=== PATIENT | male | born 1990 | race Caucasian/White ===

== ENCOUNTER 2020-05-02 17:40 | Emergency (ER) | payer BC, SELFPAY ==
[2020-05-02] MEDS ORDERED: FLUORESCEIN SODIUM 1 MG/WRAP ONE (18:32)
[2020-05-02] MEDS ORDERED: TETRACAINE HCL 0.5% 4ML OPTH ONE ×2 (18:36→19:30)
[2020-05-02] MEDS ORDERED: KETOROLAC 30 MG/ML INJ ONE (19:17)
--- NOTE | 2020-05-02 19:31 | EDPHYS ---
Physician Documentation [facility] Name: Daryn Mesa Age: 29 yrs Sex: Male : 1990 Arrival Date: 05/02/2020 Time: 17:42 Bed 25 Private MD: ED Physician Santos Alcantara HPI: 05/02 18:29 This 29 yrs old Male presents to ER via Ambulatory with complaints of Eye pm1 Injury. 18:29 The patient is experiencing pain, redness, tearing, The patient sustained a scratch, to pm1 the left eye, caused by branch. Onset: The symptoms/episode began/occurred just prior to arrival, today. Duration: the symptoms are continuous. Aggravated by nothing. Alleviated by nothing. Associated signs and symptoms: Pertinent positives: None. Patient does not utilize any form of vision correction. Severity of symptoms: in the emergency department the symptoms are worse. The patient has not experienced similar symptoms in the past. 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 He then tried to wash his eye with a hose because he felt like there was something in his eye. The water was hot and it made his eye pain worse. Historical: - Allergies: 17:46 No Known Allergies; ll1 - PSHx: 17:46 None; ll1 - Immunization history:: Last tetanus immunization: unknown. - Social history:: Smoking status: Patient reports the use of cigarette tobacco products, smokes one-half pack cigarettes per day, Patient uses alcohol, only on a social basis. Patient/guardian denies using IV drugs. ROS: 18:29 Constitutional: Negative for fever, chills, and weight loss. pm1 18:29 ENT: Negative for injury, pain, and discharge, Neck: Negative for injury, pain, and swelling, Cardiovascular: Negative for chest pain, palpitations, and edema, Respiratory: Negative for shortness of breath, cough, wheezing, and pleuritic chest pain, Abdomen/GI: Negative for abdominal pain, nausea, vomiting, diarrhea, and constipation, MS/Extremity: Negative for injury and deformity, Skin: Negative for injury, rash, and discoloration, Neuro: Negative for headache, weakness, numbness, tingling, and seizure. 18:29 Eyes: Positive for pain, redness, tearing, of the left eye. Exam: 19:30 Constitutional: This is a well developed, well nourished patient who is awake, alert, pm1 and in no acute distress. Head/Face: Normocephalic, atraumatic. 19:30 Skin: Warm, dry with normal turgor. Normal color with no rashes, no lesions, and no evidence of cellulitis. MS/ Extremity: Pulses equal, no cyanosis. Neurovascular intact. Full, normal range of motion. 19:30 Eyes: Periorbital structures: appear normal, Pupils: no acute changes, normal size, normal reaction to light, Extraocular movements: intact throughout, Conjunctiva: injected, mild to 9 o'clock of left eye. No chemosis present, Corneas: abrasion, that is small, approximately 3 mm(s), on the left, at 9 o'clock, foreign body, is not appreciated, a fluorescein strip employed to appreciate the findings, Sclera: no appreciated abnormality, Anterior chamber: normal, no hyphema, in left eye, Lids and lashes: appear normal, bilaterally. 19:30 Cardiovascular: Exam negative for acute changes, Rate: normal, Rhythm: regular, Pulses: no pulse deficits are appreciated. 19:30 Respiratory: Exam negative for acute changes, respiratory distress, shortness of breath. 19:30 Neuro: Exam negative for acute changes, Orientation: is normal, Mentation: is normal, Motor: is normal, moves all fours. Vital Signs: 17:44 BP 141 / 75; Pulse 74; Resp 17; Temp 97.8; Pulse Ox 99% ; Pain 8/10; ll1 Visual Acuity: 18:31 Right Eye Visual acuity 20/25, ; Both Eyes Visual acuity 20/30; Without Lenses; Left vc eye watering too much, states vision comes and goes. MDM: 18:11 Patient medically screened. [facility] 19:30 Data reviewed: vital signs. Data interpreted: Pulse oximetry: on room air is 99 %. pm1 Interpretation: normal. Counseling: I had a detailed discussion with the patient and/or guardian regarding: the historical points, exam findings, and any diagnostic results supporting the discharge/admit diagnosis, the need for outpatient follow up, for definitive care, an opthalmologist, to return to the emergency department if symptoms worsen or persist or if there are any questions or concerns that arise at home. 05/03 02:03 ED course: TELESALES ADVISOR Aware reviewed. pm1 05/02 18:34 Order name: Visual Acuity; Complete Time: 18:35 pm1 05/02 18:34 Order name: Eye Tray; Complete Time: 18:35 pm1 05/02 18:34 Order name: Fluoresene Opth strip; Complete Time: 18:35 pm1 Administered Medications: 05/02 19:13 Not Given (Patient drove self): Tylenol #3 (300 mg-30 mg) 2 tabs PO once; RASS on vc ADMIN: Combtv4, Very Agttd3, Agttd2, Rstlss1, AlertClm0, Drwsy-1, Lt Sdtn-2, Mod Sdtn-3, Dp Sdtn-4, UnArsble-5 19:13 Drug: TORadol 60 mg Route: IM; Site: right vastus lateralis; vc 23:03 Follow up: Response: No adverse reaction vc 19:40 Drug: Tetracaine Drops 0.5 % 1 drops Route: Ophthalmic; Site: left eye; vc Disposition: 05/03 05:38 Co-signature as Attending Physician, Santos Alcantara MD I agree with the assessment and [facility] plan of care. Disposition: 05/02/20 19:31 Discharged to Home. Impression: Injury of conjunctiva and corneal abrasion without foreign body, left eye. - Condition is Stable. - Discharge Instructions: Corneal Abrasion. - Prescriptions for Vigamox 0.5 % Ophthalmic Drops - instill 1 drop by OPHTHALMIC route every 8 hours for 7 days; 5 milliliter. Tylenol- Codeine #3 300-30 mg Oral Tablet - take 2 tablets by ORAL route every 6 hours As needed; 20 tablet. - Medication Reconciliation Form, Thank You Letter, Antibiotic Education, Prescription Opioid Use form. - Follow up: Emergency Department; When: As needed; Reason: Worsening of condition. Follow up: Private Physician; When: 2 - 3 days; Reason: Recheck today's complaints, Continuance of care, Re-evaluation by your physician. - Problem is new. - Symptoms have improved. Signatures: Santos Alcantara MD MD cha Marinas, Patrick, APPLIANCE FIXER APPLIANCE FIXER pm1 Avis Carballo RN RN vc Georgia Be RN RN ll1 Corrections: (The following items were deleted from the chart) 05/02 19:48 19:31 05/02/2020 19:31 Discharged to Home. Impression: Injury of conjunctiva and vc corneal abrasion without foreign body, left eye. Condition is Stable. Forms are Medication Reconciliation Form, Thank You Letter, Antibiotic Education, Prescription Opioid Use. Follow up: Emergency Department; When: As needed; Reason: Worsening of condition. Follow up: Private Physician; When: 2 - 3 days; Reason: Recheck today's complaints, Continuance of care, Re-evaluation by your physician. Problem is new. Symptoms have improved. pm1
--- NOTE | 2020-05-02 19:31 | ER ---
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 Tried to rinse ll1 out with hose. Super hot water flushed into eye suddenly. Coronavirus screen: Proceed with normal triage. Patient denies a cough. Patient denies shortness of breath or difficulty breathing. Patient denies measured and/or subjective temperature greater than 100.4F prior to today's visit. Patient denies travel on a cruise ship or to a country the [facility] currently lists as an affected area. Patient denies contact with known and/or suspected case of COVID-19. Ebola Screen: Patient denies travel to an Ebola-affected area in the 21 days before illness onset. Mechanism of Injury: Penetrating trauma. Initial Sepsis Screen: Does the patient meet any 2 criteria? No. Patient's initial sepsis screen is negative. Onset of symptoms was May 02, 2020. 17:44 Method Of Arrival: Ambulatory ll1 17:44 Acuity: RANJAN 3 ll1 18:00 The patient reports a positive loss of vision. The patient's loss of vision began vc suddenly 1 hour ago. Initial Sepsis Screen: Does the patient have a suspected source of infection? No. Patient's initial sepsis screen is negative. Risk Assessment: Do you want to hurt yourself or someone else? Patient reports no desire to harm self or others. Historical: - Allergies: 17:46 No Known Allergies; ll1 - PSHx: 17:46 None; ll1 - Immunization history:: Last tetanus immunization: unknown. - Social history:: Smoking status: Patient reports the use of cigarette tobacco products, smokes one-half pack cigarettes per day, Patient uses alcohol, only on a social basis. Patient/guardian denies using IV drugs. Screenin:00 Abuse screen: Denies threats or abuse. Nutritional screening: No deficits noted. vc Tuberculosis screening: No symptoms or risk factors identified. Fall Risk None identified. Assessment: 18:00 General: Appears in no apparent distress. uncomfortable, slender, Behavior is calm, vc cooperative, appropriate for age. Pain: Denies pain. Neuro: Level of Consciousness is awake, alert, obeys commands, Oriented to person, place, time, situation, Appropriate for age. Cardiovascular: Capillary refill < 3 seconds Patient's skin is warm and dry. Respiratory: Airway is patent Respiratory effort is even, unlabored, Respiratory pattern is regular, symmetrical. GI: No signs and/or symptoms were reported involving the gastrointestinal system. : No signs and/or symptoms were reported regarding the genitourinary system. EENT: Eyes are tearing on inner aspect of conjunctiva of left eye and left inner canthus Sclera/Cornea are reddened in inner aspect of conjunctiva of left eye Reports blurred vision in outer aspect of conjuctiva of left eye, iris of left eye and inner aspect of conjunctiva of left eye. Derm: Skin temperature is warm. Musculoskeletal: Circulation, motion, and sensation intact. 18:40 Reassessment: Patient appears in no apparent distress at this time. Patient and/or vc family updated on plan of care and expected duration. Pain level reassessed. Patient denies pain at this time. Vital Signs: 17:44 BP 141 / 75; Pulse 74; Resp 17; Temp 97.8; Pulse Ox 99% ; Pain 8/10; ll1 Visual Acuity: 18:31 Right Eye Visual acuity 20/25, ; Both Eyes Visual acuity 20/30; Without Lenses; Left vc eye watering too much, states vision comes and goes. ED Course: 17:42 Patient arrived in ED. as 17:45 Triage completed. ll1 17:46 Arm band placed on Patient placed in an exam room, on a stretcher. ll1 17:48 Avis Carballo, RN is Primary Nurse. vc 18:00 Patient has correct armband on for positive identification. Bed in low position. Call vc light in reach. 18:10 Lenin Edmond NP is PHCP. pm1 18:10 Santos Alcantara MD is Attending Physician. pm1 18:45 Assist provider with eye exam of left eye. using fluorescein stain, Performed by vc Lenin Edmond NP Patient tolerated well. 18:45 Patient did not have IV access during this emergency room visit. vc Administered Medications: 19:13 Not Given (Patient drove self): Tylenol #3 (300 mg-30 mg) 2 tabs PO once; RASS on vc ADMIN: Combtv4, Very Agttd3, Agttd2, Rstlss1, AlertClm0, Drwsy-1, Lt Sdtn-2, Mod Sdtn-3, Dp Sdtn-4, UnArsble-5 19:13 Drug: TORadol 60 mg Route: IM; Site: right vastus lateralis; vc 23:03 Follow up: Response: No adverse reaction vc 19:40 Drug: Tetracaine Drops 0.5 % 1 drops Route: Ophthalmic; Site: left eye; vc Outcome: 19:31 Discharge ordered by MD. pm1 19:45 Discharged to home ambulatory. vc 19:45 Condition: good 19:45 Discharge instructions given to patient, Instructed on discharge instructions, follow up and referral plans. no drinking with medication, no driving heavy equipment, medication usage, Demonstrated understanding of instructions, follow-up care, medications, Prescriptions given X 2. 19:48 Patient left the ED. vc Signatures: Ana Alves Patrick, SEGMENTAL PAVER INSTALLER SEGMENTAL PAVER INSTALLER pm1 Avis Carballo RN RN vc Georgia Be RN RN ll1
[2020-05-02 19:55] VITALS: BP 141/75; TEMP 97.8; O2SAT 99
== END 2020-05-02 19:48 | disposition home or self-care (01) ==
LOC: ER 17:40
DX: S05.02XA Injury of conjunctiva and corneal abrasion without foreign body, left eye, initial encounter (principal); W22.8XXA Striking against or struck by other objects, initial encounter; Y93.89 Activity, other specified; Y92.9 Unspecified place or not applicable; F17.210 Nicotine dependence, cigarettes, uncomplicated
CPT/HCPCS: 96372; 99283